=== PATIENT | female | born 1980 | race Caucasian/White ===

== ENCOUNTER 2017-06-18 17:02 | Inpatient (IN) | payer BC ==
[2017-06-18] MEDS: SODIUM CHLORIDE 0.9% FLUSH 10 ML SOL IV SCH (17:55)
[2017-06-18 18:02] LABS: BASOPHILS % (AUTO) 0 % (0-3); EOSINOPHILS % (AUTO) 1 % (0-9); HEMATOCRIT 35 % (35-47); MEAN CORPUSCULAR HGB CONC 34.5 gm/dl (32.0-36.0); MEAN CORPUSCULAR VOLUME 86 fL (81-99); MONOCYTES % (AUTO) 7.7 % (0-12); NEUTROPHILS % (AUTO) 70.5 % (37-80)
[2017-06-18] MEDS ORDERED: FENTANYL 100MCG/2ML SOL IV PRN (18:15)
[2017-06-18] MEDS ORDERED: SODIUM CHLORIDE 0.9% FLUSH 10 ML SOL IV PRN (18:15)
[2017-06-18] MEDS ORDERED: MEPIVACAINE HCL 1% MPF 30 ML SOL INFIL PRN (18:15)
[2017-06-18] MEDS ORDERED: OXYTOCIN 10000 MU/ML SOL IM PRN (18:15)
[2017-06-18] MEDS ORDERED: CARBOPROST 250 MCG/ML SOL IM PRN (18:15)
[2017-06-18] MEDS ORDERED: METHYLERGONOVINE MALEATE 0.2 MG/ML SOL IM PRN (18:15)
[2017-06-18] MEDS ORDERED: LACTATED RINGERS 1,000 ML IV PRN (18:15)
[2017-06-18] MEDS ORDERED: MORPHINE SULFATE 0.5 MG/ML SOL ONE (18:26)
[2017-06-18] MEDS ORDERED: LIDOCAINE HCL 1% MPF SOL ONE (18:28)
[2017-06-18] MEDS ORDERED: MISOPROSTOL 100 MCG TAB PR ONE (19:35)
[2017-06-18] MEDS ORDERED: IBUPROFEN 600 MG TAB PO PRN (19:49)
[2017-06-18] MEDS ORDERED: BENZOCAINE/MENTHOL 1 SPR TOP PRN (19:49)
[2017-06-18] MEDS ORDERED: METHYLERGONOVINE MALEATE 0.2 MG TAB PO PRN (19:49)
[2017-06-18] MEDS ORDERED: WITCH HAZEL 1 EA PAD TOP PRN (19:49)
[2017-06-18] MEDS ORDERED: BISACODYL 10 MG SUP PR PRN (19:49)
[2017-06-18] MEDS ORDERED: TEMAZEPAM 15MG 15 MG CAP PO PRN (19:49)
[2017-06-18] MEDS ORDERED: FLEET ENEMA PR PRN (19:49)
[2017-06-18] MEDS ORDERED: APAP/HYDROCODONE 325/5 TAB PO PRN (19:49)
[2017-06-19] MEDS: DOCUSATE SODIUM 100 MG SGL PO SCH ×3 (00:44→20:58)
[2017-06-19] MEDS: SODIUM CHLORIDE 0.9% FLUSH 10 ML SOL IV SCH ×2 (02:02→10:39)
[2017-06-19 19:48] VITALS: O2SAT 95
[2017-06-20 02:39] VITALS: RESP 20
[2017-06-20] MEDS: DOCUSATE SODIUM 100 MG SGL PO SCH (08:24)
[2017-06-20 11:25] VITALS: BP 119/68; PULSE 48; TEMP 98.4
== END 2017-06-20 20:26 | disposition home or self-care (01) | DRG 542 ==
LOC: OBSVTOIN 17:02 → OB 17:02
PROVIDERS: ADMIT Family Medicine; ATTEND Family Medicine
PROC: 10E0XZZ Delivery of Products of Conception, External Approach (ICD-10-PCS; principal; 2017-06-18)
PROC: 0W3R7ZZ Control Bleeding in Genitourinary Tract, Via Natural or Artificial Opening (ICD-10-PCS; 2017-06-18)
PROC: 0HQ9XZZ Repair Perineum Skin, External Approach (ICD-10-PCS; 2017-06-18)
DX: O76 Abnormality in fetal heart rate and rhythm complicating labor and delivery (principal); O72.1 Other immediate postpartum hemorrhage; O69.81X0 Labor and delivery complicated by cord around neck, without compression, not applicable or unspecified; O70.0 First degree perineal laceration during delivery; Z3A.38 38 weeks gestation of pregnancy; Z37.0 Single live birth
CPT/HCPCS: 85018; 85025; J2274; J2590; J3010; A9270-GY; J2001